=== PATIENT | male | born 2000 | race Two or more races ===

== ENCOUNTER 2019-05-22 19:11 | Emergency (ER) | payer SELFPAY ==
[~2019-05-22] VITALS: Ht 170.2 cm; Wt 54.1 kg
[2019-05-22 19:18] VITALS: Ht 170.2 cm; Wt 54.1 kg
[2019-05-22 19:50] LABS: APPEARANCE CLEAR (CLEAR); BILIRUBIN NEGATIVE (NEGATIVE); COLOR YELLOW (YELLOW); GLUCOSE NEGATIVE (NEGATIVE); KETONE MODERATE mg/dL (NEGATIVE); NITRITE NEGATIVE (NEGATIVE); PROTEIN TRACE mg/dL (NEGATIVE)
[2019-05-22 19:51] LABS: WHITE CELLS - URINE 0-5 /hpf (0-5)
[2019-05-22 19:52] LABS: BACTERIA FEW /hpf (NONE SEEN); RED CELLS - URINE OCC /hpf (0-5)
[2019-05-22 21:09] LABS: BASOPHILS 0.1 % (0-2); EOSINOPHILS 0 % (0-7); HEMATOCRIT 40.5 % (42.0-54.0); HEMOGLOBIN 14.4 g/dL (13.5-17.5); IMMATURE GRANULOCYTES 0.2 % (0-5); LYMPHOCYTES 13.6 % (15-50); MCH 29.6 pg (26.0-34.0); MCHC 35.6 g/dL (31.0-37.0); MCV 83.3 fL (80.0-100.0); MEAN PLATELET VOLUME 11.3 fL (7.4-10.4); MONOCYTES 10.8 % (2-11); NEUTROPHILS 75.3 % (40-80); PLATELET COUNT 126 10x3/uL (130-400); RBC 4.86 10x6/uL (4.20-6.10); RDW 11.9 % (11.5-14.5); WBC 8.7 10x3/uL (4.8-10.8)
[2019-05-22 21:14] LABS: ALBUMIN 3.6 g/dL (3.4-5.0); ALKALINE PHOSPHATASE 76 U/L (46-116); ALT (SGPT) 15 U/L (10-68); BILIRUBIN - TOTAL 1.04 mg/dL (0.2-1.3); CALC OSMOLALITY 269 mosm/kg (275-300); CALCIUM 8.7 mg/dL (8.5-10.1); CARBON DIOXIDE 27.8 mmol/L (21.0-32.0); CHLORIDE - SERUM 98 mmol/L (98-107); GLUCOSE 116 mg/dL (74-106); POTASSIUM - SERUM 4.1 mmol/L (3.5-5.1); PROTEIN - SERUM 7.7 g/dL (6.4-8.2); SODIUM 134 mmol/L (136-145); UREA NITROGEN 15 mg/dL (7-18); eGFR NON AFRICAN AMERICAN > 90 mL/min (90-120)
[2019-05-22] MEDS ORDERED: AUGMENTIN 875-11 TAB PO (21:41)
[2019-05-22] MEDS ORDERED: PROMETHAZINE W473 ML PO (21:41)
[2019-05-22 22:12] VITALS: BP 116/59
== END 2019-05-22 22:10 | disposition home or self-care (01) ==
LOC: D.ER 19:11
PROVIDERS: Family Medicine
DX: J03.90 Acute tonsillitis, unspecified (principal); E86.0 Dehydration